=== PATIENT | female | born 1940 | race Caucasian/White ===

== ENCOUNTER → 2016-10-06 | Outpatient (CLI) | payer MEDICARE, OTHER ==
[~2016-10-06] MED LIST: ASPI-496 PO; ATOR40TA78 PO; BIOT25004 PO; CHOL5000 PO; CYAN500L4 PO; DILT30TA33 PO; ENZY1TAB2 PO; FLAX100013 PO; HYDR12.58 PO; LOSA100T6 PO; METO25TA35 PO; OMEG1CAP12 PO; POTA10TA12 PO; THRE500T PO; TIMO5DRO5 EACHEYE; TURM500C7 PO; UBID100C24 PO; VIT1CAPS9 PO
== END | disposition home or self-care (01) ==
LOC: CFH 10:16
DX: R13.10 Dysphagia, unspecified (principal); M50.30 Other cervical disc degeneration, unspecified cervical region
CPT/HCPCS: 74220

== ENCOUNTER → 2017-01-27 | Outpatient (CLI) | payer MEDICARE, OTHER ==
[~2017-01-27] MED LIST changes: -BIOT25004 PO; +BIOT25005 PO; +GADOBUTROL 7.5 MMOL/7.5 ML PFS ONE; -OMEG1CAP12 PO; +OMEG1CAP23 PO
== END | disposition home or self-care (01) ==
LOC: CFH 14:30
PROVIDERS: ATTEND Specialist
DX: M50.323 Other cervical disc degeneration at C6-C7 level (principal); M50.23 Other cervical disc displacement, cervicothoracic region; M53.82 Other specified dorsopathies, cervical region; M48.02 Spinal stenosis, cervical region; M43.24 Fusion of spine, thoracic region; M25.78 Osteophyte, vertebrae; H93.13 Tinnitus, bilateral; H90.5 Unspecified sensorineural hearing loss; G31.9 Degenerative disease of nervous system, unspecified; I63.9 Cerebral infarction, unspecified
CPT/HCPCS: 70553; 72141; 82565; A9585

== ENCOUNTER → 2017-10-12 | Outpatient (CLI) | payer MEDICARE, OTHER ==
[~2017-10-12] MED LIST changes: -GADOBUTROL 7.5 MMOL/7.5 ML PFS ONE
== END | disposition home or self-care (01) ==
LOC: CVU 07:52
PROVIDERS: ATTEND Family Medicine
DX: I70.213 Atherosclerosis of native arteries of extremities with intermittent claudication, bilateral legs (principal); I70.0 Atherosclerosis of aorta
CPT/HCPCS: 93922; 93925; 93978

== ENCOUNTER 2018-04-12 02:01 | Emergency (ER) | payer MEDICARE, OTHER ==
[~2018-04-12] VITALS: Ht 149.9 cm; Wt 55.0 kg
[~2018-04-12 02:01] MED LIST changes: -LOSA100T6 PO; +LOSA100T7 PO
[2018-04-12] MEDS ORDERED: ONDANSETRON ODT 4 MG ONE (02:14)
[2018-04-12] MEDS ORDERED: SODIUM CHLORIDE FLUSH 10ML SYR IVF ONE (02:30)
[2018-04-12] MEDS ORDERED: ONDANSETRON ODT 4 MG PO ONE (02:30)
[2018-04-12 02:39] LABS: ALANINE AMINOTRANSFERASE 24 U/L (12-78); ALBUMIN 3.7 g/dL (3.4-5.0); ANION GAP 8 mmol/L (5-15); CHLORIDE 104 mmol/L (98-107); CREATININE 0.89 mg/dL (0.55-1.02)
[2018-04-12 02:44] LABS: ALKALINE PHOSPHATASE 84 U/L (45-117); BILIRUBIN,TOTAL 0.6 mg/dL (0.2-1.0); TOTAL PROTEIN 6.4 g/dL (6.4-8.2); TROPONIN I < 0.015 ng/mL (0.000-0.045)
[2018-04-12 02:56] LABS: BASOPHILS # (AUTO) 0.03 x10^3/uL (0-0.1); BASOPHILS % (AUTO) 0 % (0-1); EOSINOPHILS # (AUTO) 0.15 x10^3/uL (0-0.4); EOSINOPHILS % (AUTO) 1 % (1-7); LYMPHOCYTES # (AUTO) 1.05 x10^3/uL (1-3.4); LYMPHOCYTES % (AUTO) 10 % (22-44); MD NO; MEAN CORPUSCULAR HEMOGLOBIN 29.5 pg (27.0-34.8); MEAN CORPUSCULAR HGB CONC 33.9 g/dL (32.4-35.8); MEAN PLATELET VOLUME 7.9 fL (7.4-10.4); MONOCYTES # (AUTO) 0.82 x10^3/uL (0.2-0.8); MONOCYTES % (AUTO) 8 % (2-9); NEUTROPHILS # (AUTO) 8.55 x10^3/uL (1.8-6.8); NEUTROPHILS % (AUTO) 81 % (42-75); PLATELET COUNT 282 x10^3/uL (130-400); RED BLOOD COUNT 4.44 x10^6/uL (3.82-5.3); RED CELL DISTRIBUTION WIDTH 14.7 % (9.6-15.2)
[2018-04-12 04:22] LABS: MICROSCOPIC INDICATED
[2018-04-12 04:24] VITALS: BP 105/57
[2018-04-12 04:24] LABS: CULTURE INDICATED? YES
== END 2018-04-12 04:49 | disposition home or self-care (01) ==
LOC: ED 02:27
DX: R55 Syncope and collapse (principal); I25.10 Atherosclerotic heart disease of native coronary artery without angina pectoris
CPT/HCPCS: 36415; 71045; 80053; 81001; 84484; 85025; 87086; 93005; 99284; Q0162

== ENCOUNTER 2018-06-21 09:39 | Day surgery (SDC) | payer MEDICARE, OTHER ==
[~2018-06-21] VITALS: Ht 149.9 cm; Wt 52.3 kg
[~2018-06-21 09:39] MED LIST changes: -HYDR12.58 PO; +HYDROCHLOROTH12.5 MG PO; +LOSA100T14 PO; -LOSA100T7 PO
[2018-06-21 10:17] VITALS: BP 158/84
[2018-06-21] MEDS ORDERED: SODIUM CHLORIDE 0.9% 1,000 ML IV SCH (10:19)
[2018-06-21] MEDS ORDERED: LIDOCAINE-MPF 1%, 2ML INFIL ONE (10:30)
[2018-06-21 10:44] LABS: BASOPHILS # (AUTO) 0.02 x10^3/uL (0-0.1); BASOPHILS % (AUTO) 0 % (0-1); EOSINOPHILS % (AUTO) 2 % (1-7); LYMPHOCYTES # (AUTO) 1.22 x10^3/uL (1-3.4); LYMPHOCYTES % (AUTO) 22 % (22-44); MD NO; MEAN CORPUSCULAR HEMOGLOBIN 28.4 pg (27.0-34.8); MEAN CORPUSCULAR HGB CONC 33.5 g/dL (32.4-35.8); MEAN CORPUSCULAR VOLUME 84.8 fL (80-100); MEAN PLATELET VOLUME 8.1 fL (7.4-10.4); MONOCYTES # (AUTO) 0.86 x10^3/uL (0.2-0.8); MONOCYTES % (AUTO) 16 % (2-9); NEUTROPHILS # (AUTO) 3.33 x10^3/uL (1.8-6.8); NEUTROPHILS % (AUTO) 60 % (42-75); PLATELET COUNT 320 x10^3/uL (130-400); RED BLOOD COUNT 4.56 x10^6/uL (3.82-5.3); RED CELL DISTRIBUTION WIDTH 13.8 % (9.6-15.2)
[2018-06-21] MEDS ORDERED: LIDOCAINE-MPF 1%, 5ML ONE (10:50)
[2018-06-21] MEDS ORDERED: FENTANYL PF 100 MCG/2ML ONE ×2 (11:00→11:01)
[2018-06-21] MEDS ORDERED: NALOXONE 1 MG/ML, 2ML ONE (11:01)
== END 2018-06-21 13:20 | disposition home or self-care (01) ==
LOC: OUT 09:39 → EDSTATUS 11:30 → OUT 13:20
PROVIDERS: ATTEND Internal Medicine Geriatric Medicine
DX: K52.89 Other specified noninfective gastroenteritis and colitis (principal); K52.9 Noninfective gastroenteritis and colitis, unspecified; F19.90 Other psychoactive substance use, unspecified, uncomplicated; D47.09 Other mast cell neoplasms of uncertain behavior; I25.10 Atherosclerotic heart disease of native coronary artery without angina pectoris; I10 Essential (primary) hypertension; D64.9 Anemia, unspecified; Z88.0 Allergy status to penicillin; Z88.8 Allergy status to other drugs, medicaments and biological substances; Z98.890 Other specified postprocedural states; Z96.653 Presence of artificial knee joint, bilateral; Z79.82 Long term (current) use of aspirin; Z79.899 Other long term (current) drug therapy
CPT/HCPCS: 36415; 38222; 77012; 85025; 85060; 85097; 88237; 88264; 88280; 88305; 88311; 88313; J3010; J3490; J7030; J2310

== ENCOUNTER → 2019-12-08 | Outpatient (CLI) | payer MEDICARE ==
[~2019-12-08] MED LIST changes: +OMNIPAQUE 350 MG/ML, 100ML BOTTLE ONE
== END | disposition home or self-care (01) ==
LOC: CFH 12:27
PROVIDERS: ATTEND Family Medicine
DX: I70.1 Atherosclerosis of renal artery (principal); I10 Essential (primary) hypertension
CPT/HCPCS: 74175; 82565; Q9967

== ENCOUNTER 2020-01-24 06:29 | Emergency (ER) | payer MEDICARE ==
[~2020-01-24] VITALS: Ht 149.9 cm; Wt 50.0 kg
[~2020-01-24 06:29] MED LIST changes: -OMNIPAQUE 350 MG/ML, 100ML BOTTLE ONE
[2020-01-24] MEDS ORDERED: LORazepam 2 MG/ML, 1ML IVPush ONE (07:00)
--- NOTE | 2020-01-24 07:00 | NUR ---
REPORT TO DORA PEREZ
[2020-01-24 07:29] LABS: BASOPHILS # (AUTO) 0.01 x10^3/uL (0-0.1); BASOPHILS % (AUTO) 0 % (0-1); EOSINOPHILS # (AUTO) 0.03 x10^3/uL (0-0.4); EOSINOPHILS % (AUTO) 1 % (1-7); LYMPHOCYTES # (AUTO) 0.76 x10^3/uL (1-3.4); LYMPHOCYTES % (AUTO) 18 % (22-44); MD NO; MEAN CORPUSCULAR HEMOGLOBIN 28.1 pg (27.0-34.8); MEAN CORPUSCULAR HGB CONC 32.9 g/dL (32.4-35.8); MEAN CORPUSCULAR VOLUME 85.5 fL (80-100); MEAN PLATELET VOLUME 6.9 fL (7.4-10.4); MONOCYTES # (AUTO) 0.63 x10^3/uL (0.2-0.8); MONOCYTES % (AUTO) 15 % (2-9); NEUTROPHILS # (AUTO) 2.76 x10^3/uL (1.8-6.8); NEUTROPHILS % (AUTO) 66 % (42-75); PLATELET COUNT 291 x10^3/uL (130-400); RED BLOOD COUNT 4.61 x10^6/uL (3.82-5.3); RED CELL DISTRIBUTION WIDTH 14.1 % (9.6-15.2)
[2020-01-24] MEDS ORDERED: MORPHINE SULFATE 4 MG/ML, 1ML IVPush PRN (07:30)
[2020-01-24] MEDS ORDERED: PROMETHAZINE 25 MG/ML, 1ML IM ONE (07:30)
[2020-01-24] MEDS ORDERED: SODIUM CHLORIDE 0.9% 1,000ML IVBOLUS ONE (07:30)
--- NOTE | 2020-01-24 07:36 | NUR ---
PT BIB BY EMS FOR HIGH BP AND FEELING ANXIOUS. PT STATES SGE FELT LIKE "SHE WAS DYING". PT TOOK 1 CLONADINE AT THAT TIME. PT DENIES CP, SOB, TINGLING IN EXT, OR HEADACHE.
[2020-01-24 07:39] LABS: ALBUMIN 3.6 g/dL (3.4-5.0); ANION GAP 5 mmol/L (5-15); CALCIUM 8.7 mg/dL (8.5-10.1); CHLORIDE 104 mmol/L (98-107); CREATININE 0.58 mg/dL (0.55-1.02)
[2020-01-24 07:43] LABS: TROPONIN I < 0.015 ng/mL (0.000-0.045)
[2020-01-24] MEDS ORDERED: PROMETHAZINE 25 MG/ML, 1ML ONE (07:48)
[2020-01-24] MEDS ORDERED: LORazepam 2 MG/ML, 1ML ONE (07:49)
--- NOTE | 2020-01-24 08:07 | NUR ---
MEDS ADMINISTERED PER THE JUL.
[2020-01-24 08:45] VITALS: BP 188/87
--- NOTE | 2020-01-24 09:02 | NUR ---
PT RELAXED AFTER ADMIN OF MEDS PER MAR. NO PAIN OR ANXIETY PRESENT.
== END 2020-01-24 09:06 | disposition home or self-care (01) ==
LOC: ED 07:01
DX: R06.00 Dyspnea, unspecified (principal); F41.1 Generalized anxiety disorder; I10 Essential (primary) hypertension; R06.4 Hyperventilation; R07.9 Chest pain, unspecified; Z88.0 Allergy status to penicillin
CPT/HCPCS: 36415; 71045; 80048; 82040; 83880; 84484; 85025; 93005; 96361; 96372; 96374; 99285; J2060; J2550; J7030

== ENCOUNTER → 2021-02-18 | Outpatient (CLI) | payer MEDICARE, OTHER ==
[~2021-02-18] MED LIST changes: +ALPR0.25 PO; +BRIM5DRO2 OP; +CEFD300C37 PO; +CLON0.1T22 PO; +HYDR-3343 PO; +POTA-138 PO; -POTA10TA12 PO; +[UNRECOGNIZED DRUG - OTHER] PO
== END | disposition home or self-care (01) ==
LOC: RAD 09:35
PROVIDERS: ATTEND Specialist
DX: R13.10 Dysphagia, unspecified (principal)
CPT/HCPCS: 74230